=== PATIENT | female | born 1975 | race Caucasian/White ===

== ENCOUNTER 2018-04-29 07:10 | Emergency (ER) | payer OTHER ==
[~2018-04-29] VITALS: Ht 157.5 cm; Wt 83.9 kg
--- NOTE | 2018-04-29 08:12 | RADIOLOGY REPORT ---
EXAMINATION: XR KNEE, LEFT CLINICAL INFORMATION: Pain and swelling COMPARISON: Left lower leg 07/08/2006. TECHNIQUE: 5 views of the left knee. FINDINGS: There is no fracture or dislocation. There may be a small suprapatellar effusion. There is no fat-fluid level on the crosstable lateral projection. Hoffa's fat pad appears normal. There is no joint narrowing or erosive change. IMPRESSION: Suspect small effusion. No visible fracture or dislocation.
--- NOTE | 2018-04-29 08:15 | ED UPPER/LOWER EXTREMITY COMPL ---
History of Present Illness General Chief Complaint: Lower Extremity Injury Stated Complaint: PT C/O LT KNEE PAIN S/P "[employer]" YESTERDAY Source: patient Exam Limitations: no limitations Vital Signs & Intake/Output Vital Signs & Intake/Output Vital Signs Date Time Temp Pulse Resp B/P B/P Pulse O2 O2 Flow FiO2 Mean Ox Delivery Rate 04/29 828 98.1 80 15 131/77 99 Room Air Room Air 04/29 719 98.3 86 20 144/81 98 Room Air Allergies Coded Allergies: No Known Drug Allergies (Intermediate, NONE 04/29/18) Uncoded Allergies: Allergy Other NKA Food Allergies NKA Med Allergies N Reconcile Medications Oxycodone HCl/Acetaminophen (Percocet 5-325 MG Tablet) 5 MG-325 MG TABLET 1-2 TAB PO Q6P PRN PAIN Triage Note: C/O PAIN TO BACK OF R KNEE AND LIMITED ROM SINCE YESTERDAY. S/P JUMPING ON A TRAMPOLINE AND HEARD A "POP". PAIN WORSE WITH WEIGHT BEARING. Triage Nurses Notes Reviewed? yes : No Patient currently breastfeeds: No HPI: Patient was at a [employer] park with her daughter yesterday and she was jumping on the trampoline. Patient states that one of the times when she landed she felt a pop in her left knee. Since then she has been unable to bear any weight on her knee. The pain is in the lateral aspect and radiates to the back of her knee. The pain increases with ambulation. It radiates as noted above. The pain is aching and throbbing in nature. There is no relief from Motrin. There is no weakness or numbness. She rates the pain as severe on the pain scale. Patient denies any other injury. Past History Travel History Traveled to [place] past 21 day No Medical History Any Pertinent Medical History? none Neurological: NONE Cardiovascular: NONE Respiratory: NONE Gastrointestinal: NONE Hepatic: NONE Renal: NONE Musculoskeletal: NONE Psychiatric: NONE Surgical History Surgical History: non-contributory Psychosocial History What is your primary language Indonesian Tobacco Use: Never used ETOH Use: occasional use Illicit Drug Use: denies illicit drug use Family History Hx Contributory? No Review of Systems Review of Systems Constitutional: Reports: no symptoms. Respiratory: Reports: no symptoms. Cardiovascular: Reports: no symptoms. Musculoskeletal: Reports: see HPI, joint pain, joint swelling. Neurological/Psychological: Reports: no symptoms. Immunological: Reports: no symptoms. Physical Exam Physical Exam General Appearance: well developed/nourished, alert, awake, mild distress Eyes: Bilateral: PERRL, EOMI. Neck: normal inspection, supple, full range of motion, no midline tenderness Cardiovascular/Respiratory: normal breath sounds, normal peripheral pulses, regular rate/rhythm, no respiratory distress Knee Left: swelling, tenderness, pain, soft tissue tenderness, limited range of motion Knee Ligaments Left: difficult to test secondary to pain Foot Left: normal inspection, normal range of motion Neurologic/Tendon: normal sensation, normal motor functions Progress Differential Diagnosis: dislocation, fracture, sprain, tendon injury Plan of Care: Orders Procedure Date/time Status Durable Medical Equipment 04/29 823 Active Diagnostic Imaging: Viewed by Me: Radiology Read. Discussed w/RAD: Radiology Read. Radiology Impression: PATIENT: GARRY ABREU PRESENT AGE: 42 PATIENT ACCOUNT NO: [id number] : 76 LOCATION: [facility] ORDERING PHYSICIAN: Vargas Kennedy MD SERVICE DATE: 04/29/18 EXAM TYPE: RAD - XRY-KNEE, LEFT EXAMINATION: XR KNEE, LEFT CLINICAL INFORMATION: Pain and swelling COMPARISON: Left lower leg 07/08/2006. TECHNIQUE: 5 views of the left knee. FINDINGS: There is no fracture or dislocation. There may be a small suprapatellar effusion. There is no fat-fluid level on the crosstable lateral projection. Hoffa's fat pad appears normal. There is no joint narrowing or erosive change. IMPRESSION: Suspect small effusion. No visible fracture or dislocation. DICTATED BY: Gio Chan MD DATE/TIME DICTATED:04/29/18804 [employer] PRINCIPAL:RASHAUN DATE/TIME TRANSCRIBED:04/29/18804 CONFIDENTIAL, DO NOT COPY WITHOUT APPROPRIATE AUTHORIZATION. <Electronically signed in Other Vendor System> SIGNED BY: Gio Chan MD 04/29/18811 Departure Departure Disposition: HOME OR SELF CARE Condition: Stable Clinical Impression Primary Impression: Left knee sprain Referrals: Kathleen BRANDON,Jamil Peterson DO (PCP/Family) Additional Instructions: WEAR IMMOBILIZER AND USE CRUTCHES TAKE PERCOCET NEEDED FOR PAIN. PERCOCET IS VERY CONSITPATING WELL VERY SEDATING SO DO NOT DRIVEAFTER TAKING IT. FOLLOW UP WITH ORTHOPEDICS RETURN IF SYMPTOMS WORSEN OR FOR ANY CONCERNS Departure Forms: Customer Survey General Discharge Information Prescriptions: Current Visit Scripts Oxycodone HCl/Acetaminophen (Percocet 5-325 MG Tablet) 1-2 TAB PO Q6P PRN PAIN #12 TAB Procedures Splinting Location: left knee Manual Alignment Performed: No Pre-Made Type: knee imobilizer Splint: knee Splint Applied By: splint applied by other Pre-Proc Neuro Vasc Exam: normal Post-Proc Neuro Vasc Exam: normal
[2018-04-29] MEDS ORDERED: PERCOCET 5-3251 EACH PO (08:25)
[2018-04-29 08:28] VITALS: BP 131/77
== END 2018-04-29 08:51 ==
LOC: ERH 07:10
DX: S83.92XA Sprain of unspecified site of left knee, initial encounter (principal); X58.XXXA Exposure to other specified factors, initial encounter; Y93.44 Activity, trampolining; Y92.9 Unspecified place or not applicable
CPT/HCPCS: 73560-LT